=== PATIENT | female | born 1965 | race Caucasian/White ===

== ENCOUNTER → 2025-01-03 | Outpatient (CLI) | payer OTHER, BC, SELFPAY ==
--- NOTE | 2025-01-03 | XR_ITS ---
Examination: Foot bilateral, 4 views Technique: AP, lateral each foot total 4 views Date and time of exam: January 03, 2025 1324 hours INDICATIONS: Bilateral foot pain several months FINDINGS: Moderate osteopenia Bilateral mild to moderate narrowing first metatarsophalangeal joints Subacute to old appearing fractures distal right third and fourth metatarsals without major displacement IMPRESSION: Subacute to old appearing fractures distal right and third fourth metatarsals
== END | disposition home or self-care (01) ==
PROVIDERS: PCP Family Medicine; Referring Provider Internal Medicine Rheumatology; Visit Provider Internal Medicine Rheumatology
DX: S62.302A Unspecified fracture of third metacarpal bone, right hand, initial encounter for closed fracture (principal); S62.304A Unspecified fracture of fourth metacarpal bone, right hand, initial encounter for closed fracture; X58.XXXA Exposure to other specified factors, initial encounter; M85.872 Other specified disorders of bone density and structure, left ankle and foot; M85.871 Other specified disorders of bone density and structure, right ankle and foot
CPT/HCPCS: 73620

== ENCOUNTER → 2025-05-04 | Outpatient (CLI) | payer BC, SELFPAY ==
--- NOTE | 2025-05-04 14:23 | XR_ITS ---
EXAMINATION: Thoracic spine 3 views TECHNIQUE: AP lateral, lateral upper dorsal spine 3 views Date and time: May 04, 2025, 1445 hours INDICATIONS: Scoliosis, osteoporosis diagnosis, back pain years FINDINGS: Severe osteopenia Thoracic levoscoliosis 23 degrees Mild chronic osteoporotic wedging mid and lower dorsal vertebral bodies Mild kyphosis dorsal spine No acute thoracic fracture Mild diffuse thoracic degenerative disc disease IMPRESSION: Severe osteopenia Thoracic levoscoliosis 23 degrees Mild kyphosis dorsal spine Mild diffuse thoracic degenerative disc disease
--- NOTE | 2025-05-04 14:23 | XR_ITS ---
EXAMINATION: Lumbar spine 3 views TECHNIQUE: AP lateral, lateral lower lumbar spine 3 views Date and time: May 04, 2025, 1447 hours, comparison November 19, 2010 INDICATIONS: Scoliosis osteoporosis back pain years FINDINGS: Thoracolumbar dextroscoliosis 39 degrees Prominent osteopenia No acute lumbar fracture No significant lumbar disc narrowing. No spondylolisthesis IMPRESSION: Severe thoracolumbar dextroscoliosis
--- NOTE | 2025-05-04 14:23 | XR_ITS ---
EXAMINATION: Cervical spine 3 views TECHNIQUE: AP, lateral, coned AP odontoid cervical spine 3 views Date and time: May 04, 2025, 1443 hours INDICATIONS: Neck pain years. FINDINGS: Prominent osteopenia. No cervical fracture. Intact odontoid. Mild disc narrowing C5-C6, C6-C7 IMPRESSION: Early degenerative disc disease C5-C6, C6-C7
== END | disposition home or self-care (01) ==
PROVIDERS: PCP Family Medicine; Referring Provider Internal Medicine Rheumatology; Visit Provider Internal Medicine Rheumatology
DX: M50.322 Other cervical disc degeneration at C5-C6 level (principal); M41.85 Other forms of scoliosis, thoracolumbar region; M85.88 Other specified disorders of bone density and structure, other site; M51.34 Other intervertebral disc degeneration, thoracic region
CPT/HCPCS: 72040; 72070; 72100

== ENCOUNTER → 2025-06-13 | Outpatient (CLI) | payer BC, SELFPAY ==
--- NOTE | 2025-06-13 12:20 | XR_ITS ---
Examination: Bone densitometry Date and time of exam: June 13, 2025, 1240 hours INDICATIONS: Menopause age 44, family history mother hip fracture osteoporosis, personal history osteoporosis vitamin D and calcium 2 years Technique: Lumbar spine and hip total bone mineralization values of an calculated. Peak reference and age match control results have been displayed. Findings: Lumbar spine total bone mineralization is 0.665 gm/cm2. This is 3.5 standard deviations below peak reference. This is 2.0 standard deviations below age-matched controls. Hip total bone mineralization is 1.710 gm/cm2 This is 1.9 standard deviations below peak reference. This is 1.9 standard deviations below age-matched controls Impression: There is osteoporosis based on lumbar spine measurements. There is osteopenia based on hip measurements Lumbar mineralization is increased 10.5% compared with June 12, 2023 Hip mineralization is increased 0.8% compared with June 12, 2023
== END | disposition home or self-care (01) ==
LOC: CDIM 11:51
PROVIDERS: PCP Family Medicine; Referring Provider Internal Medicine Rheumatology; Visit Provider Internal Medicine Rheumatology
DX: M81.0 Age-related osteoporosis without current pathological fracture (principal); M85.89 Other specified disorders of bone density and structure, multiple sites
CPT/HCPCS: 77080